=== PATIENT | male | born 2000 | race Caucasian/White ===

== ENCOUNTER 2019-08-22 00:48 | Emergency (ER) | payer SELFPAY ==
[~2019-08-22] VITALS: Ht 188 cm; Wt 77.3 kg
[2019-08-22 00:56] VITALS: TEMP 97.2
[2019-08-22 04:36] VITALS: BP 102/7; PULSE 89
== END 2019-08-22 04:36 | disposition home or self-care (01) ==
LOC: COL.ER 00:48
DX: F10.129 Alcohol abuse with intoxication, unspecified (principal); R11.2 Nausea with vomiting, unspecified; F90.9 Attention-deficit hyperactivity disorder, unspecified type; F41.9 Anxiety disorder, unspecified; Y90.7 Blood alcohol level of 200-239 mg/100 ml
CPT/HCPCS: J2405